=== PATIENT | male | born 1935 | race Native Hawaiian/Other Pacific Islander ===

== ENCOUNTER 2017-12-09 18:56 | Emergency (ER) | payer OTHER ==
[~2017-12-09] VITALS: Ht 172.7 cm; Wt 105.7 kg
[~2017-12-09 18:56] MED LIST: BENZONATATE100 MG PO; CEPH500C20 PO; CODEINE/GUAIFEN1 SOL PO; CRESTOR20 MG PO; FINA5TAB2 PO; GLIP10TA55 PO; HYDR25SU PO; LORA2INJ21 INJ; MEMANTINE HCL10 MG PO; METF100038 PO; TAMS0.4C PO
[2017-12-09] MEDS ORDERED: ARIPIPRAZOLE10 MG PO (19:10)
[2017-12-09] MEDS ORDERED: ABILIFY20 MG PO (19:10)
[2017-12-09] MEDS ORDERED: ASPIR-8181 MG PO (19:11)
[2017-12-09] MEDS ORDERED: ARIPIPRAZOLE5 MG PO (19:11)
[2017-12-09] MEDS ORDERED: FINASTERIDE5 MG PO (19:12)
[2017-12-09] MEDS ORDERED: HUMALOG KWI100 MG/ML SC (19:13)
[2017-12-09] MEDS ORDERED: LORA0.5T17 PO (19:15)
[2017-12-09] MEDS ORDERED: MEMANTINE HCL10 MG PO (19:16)
[2017-12-09] MEDS ORDERED: METF100038 PO (19:16)
[2017-12-09] MEDS ORDERED: MELATONIN3 MG PO (19:16)
[2017-12-09] MEDS ORDERED: PANTOPRAZOLE 40MG TA PO (19:17)
[2017-12-09] MEDS ORDERED: CRESTOR20 MG PO (19:17)
[2017-12-09] MEDS ORDERED: TAMSULOSIN0.4 MG PO (19:18)
[2017-12-09 20:29] LABS: POTASSIUM 4.2 mmol/L (3.6-5.2)
[2017-12-09 20:35] LABS: PLATELET COUNT 157 K/uL (142-355)
[2017-12-09 20:55] VITALS: BP 125/69; TEMP 97.6
[2017-12-09] MEDS ORDERED: ASPIRIN 81 LOW81 MG PO (22:12)
== END 2017-12-09 20:56 | disposition other institution (70) ==
LOC: ED 18:56
DX: R46.89 Other symptoms and signs involving appearance and behavior (principal); Z04.6 Encounter for general psychiatric examination, requested by authority; F03.90 Unspecified dementia, unspecified severity, without behavioral disturbance, psychotic disturbance, mood disturbance, and anxiety
CPT/HCPCS: 36415; 80053; 85027; 93005; 99285